=== PATIENT | male | born 1995 | race Caucasian/White ===

== ENCOUNTER 2019-04-30 14:18 | Observation (INO) ==
[2019-04-30] MEDS ORDERED: XYLOCAINE-MPF 1% INJ ONE (14:43)
[2019-04-30] MEDS ORDERED: BOOSTRIX VACCINE IM ONE (14:44)
--- NOTE | 2019-04-30 14:49 | PROVIDER DOCUMENTATION ---
HPI-Musculoskeletal Pain/Inj - GENERAL Chief Complaint: Extremity Injury Stated Complaint: NAIL IN RIGHT THIGH Time Seen by Provider: 04/30/19 14:35 Source: patient, family - HX OF PRESENT ILLNESS-MUSKULOSKELTAL Nature of Presenting Problem: 24yom presents to ED c/o FB to right thigh s/p accidentally shooting himself with a finishing nail. Last Td unknown. Family @ [facility]. Quality of Pain: reports: aching Severity in ED: mild Onset/Duration: abrupt, just prior to arrival Timing: still present Modifying Factors: improves with: movement Any recent injury?: Yes Locality of Occurance: Home Similar Symptoms Previously?: No Recently seen or treated by another doctor?: No Review of Systems - Adult - REVIEW OF SYSTEMS - ADULT Constitutional: reports: no symptoms reported Eyes: reports: no symptoms reported Ears, Nose, Mouth & Throat: reports: no symptoms reported Cardiovascular: reports: no symptoms reported Respiratory: reports: no symptoms reported Gastrointestinal: reports: no symptoms reported Genitourinary: reports: no symptoms reported Musculoskeletal: reports: see HPI, other (right thigh FB) Integumentary: reports: no symptoms reported Neurological: reports: no symptoms reported Psychiatric: reports: no symptoms reported Endocrine: reports: no symptoms reported Hematologic/Lymphatic: reports: no symptoms reported Allergic/Immunologic: reports: no symptoms reported All Other Systems: Reviewed and Negative Past History - Adult - PAST MEDICAL HISTORY-ADULT Review of Records: reports: Old Records Reviewed, Nursing Assessment Review, Medications Reviewed, Social history reviewed & non-contributory. - SOCIAL HISTORY Smoking: non-smoker Living Situation: family Physical Exam-Injury Related - Physical Exam-Injury Related Initial Vital Signs Reviewed: Yes General Appearance: appears well, alert, no apparent distress Eyes: PERRL/EOMI, pink conjunctivae Head, Ears, Nose, Mouth & Throat: normocephalic/atraumatic, moist mucous membranes, normal ENT inspection Neck: non-tender, full range of motion, supple Respiratory: chest non-tender, lungs clear, normal breath sounds Cardiovascular: normal peripheral pulses, regular rate, rhythm, no edema, no gallop, no JVD Abdominal Exam: normal bowel sounds, non tender, soft, no organomegaly Lymphatic: no adenopathy Back Exam: normal inspection, no CVA tenderness Extremity: other (visible metal nail FB central mid Rt anterior thigh; Dec ROM due to flexion and extension Rt knee; Rt pedal pulse intact) Integumentary: normal color, warm/dry, other (visible nail head from central mid right thigh anteriorly) 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 NRSG Communication Order DIRECTED Care 04/30/19 14:48 Active Saline Loc NOW Care 04/30/19 15:13 Active Suture Tray Set-Up DIRECTED Care 04/30/19 14:43 Active FEMUR MIN 2 VIEWS RIGHT [RAD] Stat Exams 04/30/19 14:48 Completed Cefazolin 2 gm/D5w [Kefzol 2 gm/D5w] Med 04/30/19 15:18 Active 2 gm in 50 ml IV NOW Diph,Pertuss(Acell),Tet Vac/Pf [Boostrix Vaccine] Med 04/30/19 14:44 Discontinued 0.5 ml IM .ONCE ONE Lidocaine 1% Pf [Xylocaine-Mpf 1%] Med 04/30/19 14:43 Discontinued 30 ml INJ NOW ONE Morphine Med 04/30/19 15:19 Discontinued 4 mg IV NOW ONE Ondansetron [Zofran] Med 04/30/19 15:19 Discontinued 4 mg IV NOW ONE - REASSESSMENT Reassessment #1 Time Reassessed: 15:12 (Reviewed Rt femur xrays with Dr. Feliciano. Pt has a femut avulsion fracture posteriorly from the nail that remains embedded. Paged Ortho. ) Reassessment #2 Time Reassessed: 15:27 (Discussed pt with Dr. Enriquez, he recommends IV Ancef/CT Rt femur to eval for spiral fracture. He states he will take to OR.) Departure - Departure Date of Disposition Decision: 04/30/19 Time of Disposition Decision: 15:27 DIAGNOSIS: Femur fracture, right Qualifiers: Encounter type: initial encounter Femur location: shaft Fracture type: open Open fracture type: open type I or II Fracture morphology: segmental Fracture alignment: displaced Qualified Code(s): S72.361B - Displaced segmental fracture of shaft of right femur, initial encounter for open fracture type I or II Foreign body of right thigh Qualifiers: Encounter type: initial encounter Qualified Code(s): S70.351A - Superficial foreign body, right thigh, initial encounter Disposition: HOME 01 Certified Medical Emergency: Emergent Condition: Stable Referrals and Follow-Ups: None,PCP [Primary Care Provider] - - Critical Care Note This patient required my direct & personal management of CC.: No Attestation - Physician/ RAKESH Attestation Patient care was provided by Advanced Practice Provider:: Yes Advanced Practice Provider:: Selin Cosby Advanced Practice Provider documentation review:: The Mid-level provider documentation, treatment plan and medical decision making was reviewed by the physician who agrees with all treatment and medical decision making by the MLP. The physician spent face to face time with patient:: Yes (Dr. Feliciano coexaminepetros pt.) Advanced Practice Provider documentation review:: Supervising physician onsite and consulted in the evaluation and care of this patient. The physician did have a face to face encounter with the patient.
--- NOTE | 2019-04-30 15:15 | Diag Imaging Result Doc PS360 ---
EXAM: FEMUR MIN 2 VIEWS RIGHT 04/30/2019 HISTORY: Rt thigh FB TECHNIQUE: Right femur three views COMMENT: There is a nail in the soft tissues passing through the shaft of the distal third of the femur and apparently displacing a fragment of the posterior cortex. IMPRESSION: Foreign body in the thigh and femoral shaft. Electronically signed by Benedicto Kramer 04/30/2019 3:13 PM
[2019-04-30] MEDS ORDERED: KEFZOL 2 GM/D5W 2 GM/50 ML IVPB IV ONE (15:18)
[2019-04-30] MEDS ORDERED: MORPHINE IV ONE (15:19)
[2019-04-30] MEDS ORDERED: ZOFRAN IV ONE (15:19)
[2019-04-30] MEDS ORDERED: DECADRON ONE (16:09)
[2019-04-30] MEDS ORDERED: DIPRIVAN 1% ONE (16:09)
[2019-04-30] MEDS ORDERED: XYLOCAINE-MPF 2% ONE (16:09)
[2019-04-30] MEDS ORDERED: ZOFRAN ONE (16:09)
[2019-04-30] MEDS ORDERED: ROBINUL ONE (16:09)
--- NOTE | 2019-04-30 16:22 | Diag Imaging Result Doc PS360 ---
EXAM: CT EXT LOWER RIGHT W/O CON 04/30/2019 HISTORY: right thigh FB and fracture of femur TECHNIQUE: CT of the right thigh COMMENT: There is a nail passing from the anterior soft tissues and indenting the skin through the shaft of the femur and displacing a small fragment of the posterior cortex. There is no significant fluid collection. IMPRESSION: Nail in the anterior soft tissues and femoral shaft. Electronically signed by Benedicto Kramer 04/30/2019 4:20 PM
[2019-04-30] MEDS ORDERED: VERSED ONE (16:48)
[2019-04-30] MEDS ORDERED: DILAUDID ONE (17:05)
--- NOTE | 2019-04-30 17:10 | HISTORY AND PHYSICAL ---
SERVICE: Orthopedic surgery. PAST MEDICAL HISTORY: None. PAST SURGICAL HISTORY: None. MEDICATIONS: None. ALLERGIES: No known drug allergies. SOCIAL HISTORY: Patient works as a finisher polisher. He lives in [place]. He vapes. Denies any drug use. FAMILY HISTORY: Noncontributory. REVIEW OF SYSTEMS: Negative unless what is mentioned in the history of present illness. CHIEF COMPLAINT: Right thigh pain. HISTORY OF PRESENT ILLNESS: Mr. Espinal is a 24-year-old gentleman who presents to [facility] ER after shooting a betty nail through his right thigh earlier today. He was unable to bear weight afterwards. He presented to the ER. X-rays confirmed nail went through his femur causing a fracture of the posterior cortex. Given these findings, orthopedic surgeon was thus consulted for evaluation and management. He has no other complaints. PHYSICAL EXAMINATION: GENERAL: Mr. Espinal is a 24-year-old male who appears well nourished, well developed in no acute distress. He is awake, alert and oriented x3. He was very pleasant and cooperative during examination. VITAL SIGNS: Afebrile. Vital signs stable. HEENT: Normocephalic, atraumatic. RESPIRATORY: Nonlabored breathing. CARDIOVASCULAR: Regular rate and rhythm. EXTREMITIES: Examination of right lower extremity reveals nail with surrounding betty material indented into the anterior aspect of his right thigh. The thigh is soft and compressible. Motor is intact, EHL, tibialis anterior, gastrocsoleus complex. Sensation intact to light touch L3 to S1. Dorsalis pedis pulse is palpable and equal bilaterally. Calf is soft and compressible. IMAGING: Two views of the right femur were reviewed demonstrating bicortical intramedullary placement of the nail with posterior butterfly fragment. CT scan of the right femur was also reviewed demonstrating bicortical placement of the nail. There is a posterior cortical fracture. There is no propagation of the fracture proximally or distally. ASSESSMENT: A 24-year-old male with a right femoral shaft fracture with foreign body in femoral canal. PLAN: A long discussion was held with the patient and family regarding diagnosis and treatment options. Given the presence of a foreign body at the fracture site, we will proceed to the operating room for foreign body removal from right femur as well as debridement and irrigation, skin, muscle and bone. I discussed reason for procedure is not only to remove the nail but also to debride around the fracture site in hopes of preventing infection. He has been given Ancef. We will keep him nonweightbearing on the leg. He has been n.p.o. since this morning so we will plan on doing surgery this afternoon. Risks, benefits and alternative therapies were discussed with the family regarding surgery. Risks of surgery include, but are not limited to risks of bleeding, infection, damage to nerves, vessels around the area, continued pain following surgery, fracture at this site, development of infection in the bone. There is also a risk of anesthesia including blood clot, stroke, heart attack, even . Patient understands these risks. All questions were answered. Informed consent was obtained. The patient will be admitted to orthopedic surgery service. He will need IV antibiotics x24 hours.
[2019-04-30] MEDS ORDERED: SENSORCAINE 0.5%-EPI 1:200,000 ONE (17:16)
[2019-04-30] MEDS ORDERED: TORADOL PO PRN (17:51)
[2019-04-30] MEDS ORDERED: MORPHINE IV PRN (17:51)
[2019-04-30] MEDS ORDERED: ZOFRAN IV PRN (17:51)
[2019-04-30] MEDS ORDERED: LR 1,000 ML IV SCH (18:00)
[2019-04-30] MEDS: OXY IR PO PRN (19:01)
[2019-04-30] MEDS: KEFZOL 1 GM/D5W 1 GM/50 ML IVPB IV SCH (19:01)
--- NOTE | 2019-04-30 20:48 | OPERATIVE NOTE ---
PROCEDURE DATE: 04/30/2019 SERVICE: Orthopaedic surgery. PREOPERATIVE DIAGNOSIS: 1. Right type 1 open femoral shaft fracture. 2. Right femur foreign body. POSTOPERATIVE DIAGNOSIS: 1. Right Gustilo Endy type 1 open femoral shaft fracture. 2. Right femur retained foreign body. PROCEDURE: 1. Debridement and irrigation skin, muscle and bone of right open femoral shaft fracture. 2. Closed treatment of right femoral shaft fracture. 3. Removal of foreign body from right femur. ATTENDING SURGEON: Dr. Mauricio Enriquez. ASSISTANTS: None. ANESTHESIA: General endotracheal anesthesia. COMPLICATIONS: None. SPECIMENS: None. DRAINS: None. BLOOD LOSS: 10 mL. INDICATIONS FOR PROCEDURE: Mr. Espinal is a 24-year-old gentleman who sustained a nail gun injury to his right femur earlier this afternoon. Given the retained foreign body and the fact it was open fracture, decision made to proceed to the operating room for debridement and irrigation of open fracture as well as foreign body removal. Risks, benefits, alternative therapies were discussed patient regarding surgery. Risks surgery include but not limited to risks of bleeding, infection, damage to nerves and vessels around the area, continued pain following surgery, nonunion, postoperative fracture and need for revision surgery. Also risks of anesthesia including blood clot, stroke, heart attack, even . The patient understands these risks. All questions were answered. Informed consent was obtained. PROCEDURE IN DETAIL: Mr. Espinal was identified by wristband and greeted in preop holding area on 04/30/2019. His right lower extremity for the operative site was marked with indelible ink per [facility] Sign Your Site protocol. Following this the patient was transferred back to the operating room for surgery. Upon in the OR he was transferred in supine position on a skytron table. All bony prominences well padded. General endotracheal anesthesia was then induced. This time the right lower extremity was then prepped and draped in routine sterile fashion. Formal time-out was performed confirming correct patient, procedure, operative site, operative side, administration of preop antibiotics. Everyone was in agreement. Patient received 2 g Ancef prior to incision. Pliers were used to remove the nail from the anterior aspect of his femur and from his anterior thigh and femur. Once the nail was removed in its entirety we then found an additional wire that had detached from the nail was located in the anterior muscle belly. This was then removed. This time a 10 blade knife used to make a small 1 cm longitudinal incision over the nail hole. The skin edges were cored out to clean edge. We then brought in fluoroscopy to confirm removal of the foreign body and also check stability of the fracture. There was a small retained metal fragment in the posterior femoral cortex. Given location of this fragment and the fact it was embedded in bone decision was made to leave this. Curette was then used to curette out the nail hole from the anterior femur as well as the surrounding musculature. This time the wound was copiously irrigated with 3 L normal saline. We then closed the wound with a single 3-0 nylon mattress suture. This time 10 mL of 0.5% Marcaine with epi were then injected around the incision. Wound was then dressed with Adaptic, 4 x 4s, ABD, sterile Webril and Jeremías wrap. Patient was then extubated, transferred to hospital stretcher, taken to recovery in stable condition. There were no acute complications during the procedure. All sponge and sharp counts were correct at conclusion of procedure. [facility]
[2019-04-30] MEDS ORDERED: HALL'S COUGH LOZENGE MT PRN (22:31)
[2019-05-01] MEDS: OXY IR PO PRN ×2 (01:30→17:06)
[2019-05-01] MEDS: KEFZOL 1 GM/D5W 1 GM/50 ML IVPB IV SCH ×3 (01:30→17:06)
[2019-05-01 07:41] LABS: HEMATOCRIT 42.8 % (42.0-52.0); HEMOGLOBIN 14.5 g/dL (14.0-18.0)
[2019-05-01 08:24] LABS: AGAP 13; BUN 9 mg/dL (8-22); CALCIUM 8.9 mg/dL (8.8-10.2); CHLORIDE 99 mmol/L (98-107); COSMO 270; CREATININE 0.7 mg/dL (0.7-1.2); ESTIMATED GFR > 60; GLUCOSE 126 mg/dL (70-104); POTASSIUM 3.8 mmol/L (3.5-5.1); SODIUM 135 mmol/L (136-145); TCO2 23 mmol/L (25-35)
--- NOTE | 2019-05-01 14:33 | ORTHOPAEDICS PROGRESS NOTE ---
DATE: 05/01/2019 SUBJECTIVE: No acute events overnight. Patient did well postoperatively yesterday. He is able to tolerate a diet last night and this morning. He states pain is well controlled. He is ready to go home. OBJECTIVE: Hematocrits 43. Afebrile. Vital signs stable. Extremities: Examination of the right lower extremity shows Jeremías wrap surgical dressing is clean, dry, intact. Thigh and calf were soft and compressible. Motor is intact quadriceps, hamstrings, EHL, tibialis anterior, gastrocsoleus complex. Sensation intact to light touch L3-S1. Dorsalis pedis pulse palpable and equal bilaterally. ASSESSMENT: 24-year-old male status post debridement and irrigation as well as foreign body removal of right open femoral shaft fracture. Postoperative day 1. PLAN: 1. Will continue Ancef while in house for a total of 4 doses. We will then send him home on a prescription of Bactrim DS to be taken x7 days. 2. Physical therapy to mobilize. Patient will be nonweightbearing of the right lower extremity for 2 to 4 weeks total. Then mobilized with crutches. 3. Pain control. 4. Ice to the right thigh p.r.n. DISPOSITION: Plan on discharging the patient home after his evening dose of antibiotics today. I will see him in clinic in 10 to 14 days for wound check and x-rays. All questions were answered. Patient and family are in agreement.
[2019-05-01 16:33] VITALS: BP 105/81
--- NOTE | 2019-05-04 10:04 | DISCHARGE SUMMARY ---
ADMISSION DATE: 04/30/2019 DISCHARGE DATE: 05/01/2019 SERVICE: Orthopedic Surgery. ADMISSION DIAGNOSIS: Right type 1 open femur fracture with retained foreign body. DISCHARGE DIAGNOSIS: Right type 1 open femur fracture with retained foreign body. PROCEDURES: 1. Debridement and irrigation of skin, muscle, and bone of right open femur fracture with foreign body removal. 2. Closed treatment of right femur fracture. CONSULTATIONS: None. BRIEF HOSPITAL COURSE: Mr. Espinal is a 24-year-old gentleman who presented to the [facility] on 04/30/2019 after sustaining a nail gun injury to his right femur. X-rays were taken, demonstrating a retained nail in the femur, as well as a femur fracture. Given these findings, Orthopedic Surgery was consulted, and he was taken back to the operating room for debridement and nail removal. He was then admitted overnight for IV antibiotics. The patient did well overnight with no issues. On postoperative day 1, pain was well controlled on p.o. pain medication, he was tolerating a diet, and he had worked with Physical Therapy on crutches training. He had received 24 hours of IV antibiotics. The patient was thus discharged home on 05/01/2019. DISPOSITION: Discharged home. CONDITION: Stable. ACTIVITY: The patient is to be nonweightbearing, right lower extremity. Use crutches to ambulate. DISCHARGE MEDICATIONS: 1. Percocet. 2. Aspirin 325 mg once daily for DVT prophylaxis. 3. Zofran. 4. Colace. DISCHARGE INSTRUCTIONS: 1. The patient is to keep surgical dressing clean, dry, and intact x3 days. After this, he can remove his dressing and wash his wound with soap and water. He was instructed not to soak in water or pool. 2. The patient is to take Bactrim DS twice daily x10 days. 3. The patient is to follow up with me at [facility] in 1 week for a wound check and x-rays.
== END 2019-05-01 17:46 | disposition home or self-care (01) ==
LOC: 4N 14:18 → ED 14:18
PROVIDERS: ADMIT Orthopaedic Surgery Sports Medicine; ATTEND Orthopaedic Surgery Sports Medicine